=== PATIENT | male | born 1985 | race Two or more races ===

== ENCOUNTER 2017-06-25 13:30 | Emergency (ER) | payer OTHER ==
[~2017-06-25] VITALS: Ht 170.2 cm; Wt 61.6 kg
[2017-06-25] MEDS ORDERED: NAPROSYN500 MG PO (18:31)
[2017-06-25] MEDS ORDERED: TRAMADOL HCL50 MG PO (18:31)
[2017-06-25] MEDS ORDERED: SKELAXIN800 MG PO (18:31)
[2017-06-25 18:45] VITALS: BP 123/70
== END 2017-06-25 18:47 | disposition home or self-care (01) ==
LOC: EME 13:30
DX: S16.1XXA Strain of muscle, fascia and tendon at neck level, initial encounter (principal); V49.40XA Driver injured in collision with unspecified motor vehicles in traffic accident, initial encounter
CPT/HCPCS: 72125; 99281; 99284; J1885; J7512